=== PATIENT | male | born 1970 | race Caucasian/White ===

== ENCOUNTER 2017-01-12 19:06 | Emergency (ER) | payer OTHER ==
[~2017-01-12] VITALS: Ht 172.7 cm; Wt 105.2 kg
[~2017-01-12 19:06] MED LIST: DILAUDID2 MG PO; FAMOTIDINE20 MG PO; FIORICET 325 MG1 TAB PO; FLEXERIL10 MG PO; GAS RELIEF40 MG/0.6 PO; HYDROCHLOROTH12.5 MG PO; HYDROCODONE/ACE1 TA1 PO; HYDRODIURIL 2525 MG PO; MEDROL4 M2 PO; MOTRIN 600 MG600 MG PO; Mylicon PO; NAPROXEN SODIU550 M1 PO; NORVASC 5MG TAB5 MG PO; OXYCODONE5 M1 PO; PERCOCET 325 MG1 TA2 PO; SIMETHICONE 1 ML1 ML PO; TORADOL10 MG PO; TRIAMCINOL0.1 %/453 TOP; VICODIN5-300 PO; ZETIA10 MG PO; ZOFRAN ODT4 MG PO; ZOFRAN4 M1 PO; ZOFRAN4 M1 SL; [UNRECOGNIZED DRUG - CODE] PO
[2017-01-12 19:40] VITALS: BP 124/80
[2017-01-12 19:49] LABS: ABSOLUTE BASOPHIL COUNT 0 /CUMM (0.0-0.2); ABSOLUTE EOSINOPHIL COUNT 0.2 /CUMM (0.0-0.7); ABSOLUTE GRANULOCYTE CT 15.7 /CUMM (1.4-6.5); ABSOLUTE LYMPH COUNT 0.6 /CUMM (1.2-3.4); ABSOLUTE MONOCYTE COUNT 1.2 /CUMM (0.10-0.60); BASOPHIL % 0.1 % (0.0-2.0); GRANULOCYTE % 89.3 % (42.2-75.2); HEMATOCRIT 42.2 % (42-52); MEAN CORPUSCULAR HGB 26.3 PG (27.0-31.0); MEAN CORPUSCULAR HGB CONC 32.9 G/DL (33.0-37.0); MEAN PLATELET VOLUME 7.5 FL (7.4-10.4); PLATELET COUNT 289 /CUMM (130-400); RBC DISTRIBUTION WIDTH 14.2 % (11.5-14.5); RED BLOOD CELL CT 5.27 /CUMM (4.70-6.10); WHITE BLOOD CELL COUNT 17.6 /CUMM (4.8-10.8)
--- NOTE | 2017-01-12 21:34 | ED AMS/SEIZURE/WEAK/DIZZY ---
History of Present Illness General Chief Complaint: Dizziness Stated Complaint: +NVD DIZZY, CHILLS, ELENA, X 1DAY Source: patient, family, old records Exam Limitations: no limitations Vital Signs & Intake/Output Vital Signs & Intake/Output Vital Signs Date Time Temp Pulse Resp B/P B/P Pulse O2 O2 Flow FiO2 Mean Ox Delivery Rate 01/126 Room Air 01/12 1940 97.7 104 22 124/80 95 Room Air Allergies Coded Allergies: No Known Allergies (01/12/17) Reconcile Medications Ezetimibe (Zetia) 10 MG TAB 1 TAB PO DAILY CHOLESTEROL (Reported) Hydrochlorothiazide (Hydrodiuril 25 MG Tab) 25 MG TAB 1 TAB PO DAILY BP ( Reported) HYDROCODONE/ACETAMINOPHEN (Hydrocodon-Acetaminophen 5-325) 1 TAB TAB 1 TAB PO TID PRN PAIN LIPASE/PROTEASE/AMYLASE (Creon Dr 6,000 Units Capsule) 6K-19K-30K CAPSULE.DR 1 TAB PO TID CHRONIC PANMCREATITIS. PLEASE TAKE BEFORE MEALS Methylprednisolone. (Medrol) 4 MG TAB.DS.PK 1 DP PO AD INFLAMMATION 6 on day 1 then reduce by one tablet daily until gone Naproxen Sodium 550 MG TABLET 1 TAB PO BID PRN PAIN Ondansetron (Zofran Odt) 4 MG ODT 1 TAB PO Q4-6 PRN NAUSEA OXYCODONE HCL (Oxycodone) 5 MG CAP 1 CAP PO TID PAIN (Reported) Triage Note: TRIAGE: PT TO ER WITH MOTHER C/C HEADACHE PAIN SINCE THIS AFTERNOON. CONSTANT SINCE ONSET, RATES "20/". TOOK MOTRIN WITH NO RELIEF. ALSO REPORTS ASSOCIATED S/S OF DIZZINESS AND NAUSEA, VOMITED X 1. Triage Nurses Notes Reviewed? yes Onset: Abrupt Duration: day(s): (1), constant Timing: recent history Injury Environment: home Severity: mild, moderate Severity Numbers: 7 Modifying Factors: Worsens With: movement. Associated Symptoms: NV COUGH HPI: 46-year-old male with history of MR pancreatitis presents to ER complaining of dizziness nausea vomiting since today associated with a mild/moderate generalized headache. He has not taken anything for his symptoms. He denies abdominal pain diarrhea however reports an operative cough. No fever no chills no pain with movement of his neck. He denies any chest pain shortness of breath lightheadedness sore throat ear pain congestion. No recent fall or head trauma. He reports his dizziness is worse with head movement Past History Travel History Traveled to [place] past 21 day No Medical History Any Pertinent Medical History? see below for history Neurological: mild MR REY: NONE Cardiovascular: hypertension, hyperlipidemia Respiratory: NONE Gastrointestinal: pancreatitis Hepatic: NONE Renal: NONE Musculoskeletal: NONE Psychiatric: NONE Endocrine: NONE Blood Disorders: NONE Cancer(s): NONE HEALTH PHYSICIST/Reproductive: NONE History of MRSA: No History of VRE: No History of CDIFF: No Surgical History Surgical History: non-contributory Psychosocial History Who do you live with Mother Services at Home None What is your primary language Maori Tobacco Use: Never used ETOH Use: denies use Illicit Drug Use: denies illicit drug use Family History Family History, If Any: SISTER FH: obesity FATHER FH: brain cancer MOTHER FH: HTN (hypertension) Hx Contributory? No Review of Systems Review of Systems Constitutional: Reports: see HPI. All Other Systems: Reviewed and Negative Comments Review of systems: See HPI, All other systems negative. Constitutional, no chills no fever, no malaise HEENT: No visual changes no sore throat no congestion, Cardiovascular: No chest pain , no palpitation Skin: no rashes, no change in skin Respiratory: No dyspnea no cough no sputum GI: No nausea vomiting, no diarrhea, no bloating/constipatioN : NO DYSURIa Muscle skeletal: No joint pain, no joint swelling, no back pain, no neck pain, Neurologic: No numbness no confusion, headache Psych: No stress Heme/endocrine: No bruising Immunology: No lymphadenopathy Physical Exam Physical Exam General Appearance: well developed/nourished, alert, awake Comments: Well-developed well-nourished person in no acute distress HEENT: Normal EENT exam; PERRL, EOMI NO NYSTAGMUS. HEAD is atraumatic. moist mucous membranes. Neck: Supple, no lymphadenopathy, normal range of motion Back: Nontender, no CVA tenderness. Full range of motion Cardiovascular: Regular rate and rhythms no murmurs rubs or gallops, normal JVP Respiratory: Chest nontender.There were no bony deformities, no asymmetry. No respiratory distress. Patient speaking in full complete sentences. Breath sounds clear to auscultation bilaterally: NO W/R/R Abdomen: Soft, nontender nondistended, no appreciable organomegaly. Normal bowel sounds. No rebound/guarding, NO ASCITES Extremity: No edema, full range of motion of extremities, normal and equal pulses bilaterally, 5 out of 5 strength noted to bilateral upper and lower extremities Neuro: Alert oriented x3, motor sensory normal, cranial nerves II through XII grossly intact. There were no obvious focal neurologic abnormalities. No meningeal signs negative Kernig sign and negative Brudzinski's Skin: No appreciable rash on exposed skin, skin is warm and dry. Psych: Mood and affect is normal, memory and judgment is normal. Core Measures ACS in differential dx? No CVA/TIA Diagnosis: No Severe Sepsis Present: No Septic Shock Present: No Progress Differential Diagnosis: arrythmia, anemia, CVA/stroke, dehydration, drug intoxication, electrolyte imbalance, meningitis, migraine ELENA, presyncope, subarachnoid Hem., vertebrobasilar insuff, VERTIGO Plan of Care: Orders Procedure Date/time Status COMPREHENSIVE METABOLIC PANEL 01/12 1921 Complete CBC WITHOUT DIFFERENTIAL 01/12 1921 Complete EKG 01/12 1909 Active Laboratory Tests 01/12/171914: Anion Gap 11, Estimated GFR > 60, BUN/Creatinine Ratio 18.6, Glucose 116 H, Calcium 9.0, Total Bilirubin 0.4, AST 19, ALT 42, Alkaline Phosphatase 74, Total Protein 6.5, Albumin 4.3, Globulin 2.2, Albumin/Globulin Ratio 2.0, CBC w Diff MAN DIFF ORDERED, RBC 5.27, MCV 80.0, MCH 26.3 L, RDW 14.2, MPV 7.5, Gran % 89.3 H, Lymphocytes % 3.1 L, Monocytes % 6.5, Eosinophils % 1.0, Basophils % 0.1, Absolute Granulocytes 15.7 H, Segmented Neutrophils 86 H, Band Neutrophils 3, Absolute Lymphocytes 0.6 L, Lymphocytes 6 L, Monocytes 4, Absolute Monocytes 1.2 H, Absolute Eosinophils 0.2, Basophils 1, Absolute Basophils 0, Platelet Estimate ADEQUATE, Hypochromic-Microcytic 1+, Microcytic Cells 1+, PUBS MCHC 32.9 L, Fld Total RBCs Counted 100 Labs ordered from triage old records reviewed patient acute oral 30 IV Zofran 4 IV IV fluids case discussed with Dr. Escamilla who agrees with the plan 01/12/2017 10:40:32 PM discussed with the patient and his mother LAB results including his elevated white blood cell count he reports to feeling improved with fluids he has had no further episodes of vomiting in the department headache has improved with Toradol 01/12/2017 11:05:40 PM patient reports to feeling improved denies headache denies dizziness she's had no further episodes of vomiting prescription for meclizine and Zofran provided Old records including patient's previous CAT scan from earlier today reviewed IMPRESSION: 1. Stable complex fluid collection abutting the head of the pancreas and adjacent duodenum compared to the most recent CT from 09/21/2015, likely representing a chronic pseudocyst. It has slightly increased in size compared to 2013. No enhancing pancreatic mass is visualized. Diffuse pancreatic ductal dilatation is again noted with interval increase in dilatation in the pancreatic tail. If clinically warranted, further assessment may be performed with MRI/MRCP. 2. Mild peripancreatic fat stranding is present, unchanged compared to the prior study. Finding likely reflects sequela from prior pancreatitis. However, recurrent mild hepatitis cannot be excluded; clinical correlation is recommended. 3. Other stable findings as described. DICTATED BY: HARRISON ESCAMILLA DO DATE/TIME DICTATED:01/11/171052 PUBLICATION DIRECTOR:TERRIE DATE/TIME TRANSCRIBED:01/11/171052 (ARELI MERCADO) Diagnostic Imaging: Viewed by Me: Radiology Read. Discussed w/RAD: Radiology Read. Radiology Impression: PATIENT: EVA PERALTA PRESENT AGE: 46 PATIENT ACCOUNT NO: [id number] : 72 LOCATION: [facility] ORDERING PHYSICIAN: ARELI COON SERVICE DATE: 01/12/17 EXAM TYPE: RAD - XRY- PORTABLE CHEST XRAY EXAMINATION: PORTABLE CHEST 1 VIEW CLINICAL INFORMATION: FEVER, COUGH. COMPARISON: 06/07/2015. TECHNIQUE: Portable frontal view of the chest was obtained. FINDINGS: The lungs are mildly hypoexpanded. No focal infiltrate, effusion, edema, or pneumothorax. Cardiac and mediastinal silhouettes are within normal limits for technique. No acute bony abnormality seen. IMPRESSION: No evidence of acute disease compared to 06/07/2015. DICTATED BY: RHYS CALDERA MD DATE/TIME DICTATED:01/12/172250 PUBLICATION DIRECTOR: HAWKINS DATE/TIME TRANSCRIBED:01/12/172250 CONFIDENTIAL, DO NOT COPY WITHOUT APPROPRIATE AUTHORIZATION. <Electronically signed in Other Vendor System> SIGNED BY: RHYS CALDERA MD 01/12/17 1881 Initial ED EKG: none Departure Departure Disposition: HOME OR SELF CARE Condition: Stable Clinical Impression Primary Impression: Vertigo Referrals: LA NENA JONES,UGO Marshall (PCP/Family) Additional Instructions: Meclizine if needed for dizziness, Zofran for nausea. Drink plenty of fluids follow-up with primary care physician and return with any concerns Departure Forms: Customer Survey General Discharge Information Prescriptions: Current Visit Scripts Ondansetron (Zofran Odt) 1 TAB SL TID PRN nausea #10 TAB Meclizine HCl 1 TAB PO TIDPRN PRN dizziness #12 TAB
--- NOTE | 2017-01-12 22:55 | RADIOLOGY REPORT ---
EXAMINATION: PORTABLE CHEST 1 VIEW CLINICAL INFORMATION: FEVER, COUGH. COMPARISON: 06/07/2015. TECHNIQUE: Portable frontal view of the chest was obtained. FINDINGS: The lungs are mildly hypoexpanded. No focal infiltrate, effusion, edema, or pneumothorax. Cardiac and mediastinal silhouettes are within normal limits for technique. No acute bony abnormality seen. IMPRESSION: No evidence of acute disease compared to 06/07/2015.
[2017-01-12] MEDS ORDERED: ZOFRAN ODT4 M1 SL (23:07)
[2017-01-12] MEDS ORDERED: MECLIZINE HCL25 MG PO (23:07)
== END 2017-01-12 23:23 ==
LOC: ERH 19:06
PROVIDERS: Nurse Practitioner Family
DX: R42 Dizziness and giddiness (principal); R51 Headache
CPT/HCPCS: 93005; 93010; 96374; 96375; J1885; J2405